=== PATIENT | female | born 1960 | race African-American/Black ===

== ENCOUNTER 2017-11-29 11:17 | Observation (INO) ==
[2017-11-29 13:45] LABS: Basophils % 0.5 % (0.0-0.8); Eosinophils # 0.3 10*3/uL (0.0-0.87); Eosinophils % 4.6 % (0.00-10.9); Hematocrit 45.2 VOL% (35.7-47.0); Hemoglobin 15.3 GM/DL (12.0-16.0); Immature Granulocytes % 0.2 %; Immature Granulocytes Absolute 0.01 #; Lymphocytes # 2.5 10*3/uL (1.4-4.0); Lymphocytes % 39.8 % (21.3-54.2); Mean Corpuscular HGB Conc 33.8 GM/DL (32-36); Mean Corpuscular Hemoglobin 29 PG (27-34); Mean Corpuscular Volume 86.9 FL (87-102); Mean Platelet Volume 9.9 FL (9.6-12.0); Monocytes # 0.7 10*3/uL (0.11-0.8); Monocytes % 11.5 % (1.7-12.7); Neutrophils # 2.7 10*3/uL (1.4-7.4); Neutrophils % 43.4 % (38.7-73.9); Platelet Count 300 T/CUMM (130-400); Red Cell Distribution Width 13.5 % (9.3-17.3); White Blood Count 6.3 T/CUMM (4-12)
[2017-11-29 13:55] LABS: INR 0.9
[2017-11-29] MEDS ORDERED: ALUM/MAG/SIMETH/LIDO VISC 1:1 30 ML BOTTLE PO STA (14:07)
[2017-11-29] MEDS ORDERED: NITROGLYCERIN 2% OINT 1 INCH/GM PACK TOP STA (14:07)
[2017-11-29] MEDS ORDERED: SODIUM CHLORIDE 0.9% 500 ML IV STA (14:07)
[2017-11-29] MEDS ORDERED: MORPHINE 2 MG/1 ML SYRINGE IV STA (14:07)
[2017-11-29] MEDS ORDERED: ONDANSETRON 4 MG/2 ML VIAL IV STA (14:07)
[2017-11-29] MEDS ORDERED: ASPIRIN 325 MG TABLET PO STA (14:07)
[2017-11-29] MEDS ORDERED: ALUM/MAG/SIMETH/LIDO VISC 1:1 30 ML BOTTLE PO ONE (14:12)
[2017-11-29] MEDS ORDERED: ASPIRIN 325 MG TABLET ONE (14:12)
[2017-11-29] MEDS ORDERED: NITROGLYCERIN 2% OINT 1 INCH/GM PACK TOP ONE (14:12)
[2017-11-29 14:18] LABS: Alanine Aminotransferase 57 U/L (13-56); Albumin 3.8 G/DL (3.4-5.0); Alkaline Phosphatase 115 U/L (45-117); Aspartate Amino Transferase 60 U/L (0-37); Blood Urea Nitrogen 17 MG/DL (7-18); Calcium 9.2 MG/DL (8.5-10.1); Glucose 92 MG/DL (74-106); Osmolality,Calculated 276.7 MOS/KG (273-304); Sodium 138 MMOL/L (136-145); Total Protein 8.5 G/DL (6.4-8.3); Troponin I Only < 0.015 NG/ML (0.00-0.045)
[2017-11-29] MEDS ORDERED: PANTOPRAZOLE 40 MG VIAL IV STA (14:28)
[2017-11-29 14:48] LABS: Apearance,Urine Slightly Hazy (Clear); Bacteria,Urine Occasional /HPF (Few); Bilirubin,Urine Negative (Negative); Blood, Urine Negative (Negative); Glucose,Urine (UA) Negative (Negative); Ketones,Urine 5 mg/dL (Negative); Mucus,Urine Occasional /LPF (Occasional); Nitrite,Urine Negative (Negative); Protein,Urine Negative; RBC,Urine 3 /HPF (0-4); Squamous Epithelial Cell,Urine Occasional /HPF (0-10); Urine Color Yellow (Yellow); Urine Specific Gravity 1.023 (1.001-1.035); WBC,Urine 6 /HPF (0-6)
[2017-11-29] MEDS ORDERED: cefTRIAXone 1,000 MG in SODIUM CHLORIDE 0.9% 100 ML IV STA (14:52)
[2017-11-29] MEDS ORDERED: PANTOPRAZOLE 40 MG VIAL IV ONE (15:04)
[2017-11-29] MEDS ORDERED: cefTRIAXone 1,000 MG VIAL ONE (15:04)
[2017-11-29 15:15] LABS: Barbiturates Screen,Urine Negative (Negative); Benzodiazepines Screen,Urine Negative (Negative); Cannabinoid Screen,Urine Negative (Negative); Opiate Screen,Urine Negative (Negative); Phencyclidine Screen,Urine Negative (Negative)
[2017-11-29] MEDS ORDERED: NICOTINE 21 MG/24 HR PATCH TRANSDERM PRN (16:48)
[2017-11-29] MEDS ORDERED: ONDANSETRON 4 MG/2 ML VIAL IV PRN (16:48)
[2017-11-29] MEDS ORDERED: ACETAMINOPHEN 325 MG TABLET PO PRN (16:48)
[2017-11-29] MEDS ORDERED: MORPHINE 2 MG/1 ML SYRINGE IV PRN (16:48)
[2017-11-29] MEDS ORDERED: ATORVASTATIN 20 MG TABLET PO SCH (21:00)
[2017-11-29] MEDS: CARVEDILOL 3.125 MG TABLET PO SCH (22:05)
[2017-11-29] MEDS: SODIUM CHLORIDE 0.9% 1,000 ML IV SCH (22:06)
[2017-11-30 05:17] LABS: Basophils % 0.6 % (0.0-0.8); Eosinophils # 0.2 10*3/uL (0.0-0.87); Eosinophils % 4.6 % (0.00-10.9); Hematocrit 38.4 VOL% (35.7-47.0); Hemoglobin 12.6 GM/DL (12.0-16.0); Immature Granulocytes % 0.2 %; Immature Granulocytes Absolute 0.01 #; Lymphocytes # 2.5 10*3/uL (1.4-4.0); Lymphocytes % 46.9 % (21.3-54.2); Mean Corpuscular HGB Conc 32.8 GM/DL (32-36); Mean Corpuscular Hemoglobin 29 PG (27-34); Mean Corpuscular Volume 88.3 FL (87-102); Mean Platelet Volume 10.1 FL (9.6-12.0); Monocytes # 0.8 10*3/uL (0.11-0.8); Monocytes % 15.2 % (1.7-12.7); Neutrophils # 1.7 10*3/uL (1.4-7.4); Neutrophils % 32.5 % (38.7-73.9); Platelet Count 234 T/CUMM (130-400); Red Blood Count 4.35 MC/CUMM (3.8-5.5); Red Cell Distribution Width 13.2 % (9.3-17.3); White Blood Count 5.3 T/CUMM (4-12)
[2017-11-30 05:54] LABS: Albumin 2.7 G/DL (3.4-5.0); Bilirubin,Total 1.3 MG/DL (0.2-1.0); Calcium 8.2 MG/DL (8.5-10.1); Osmolality,Calculated 279.4 MOS/KG (273-304); Potassium 4.2 MMOL/L (3.5-5.1); Risk Ratio 2.36; Total Protein 6.2 G/DL (6.4-8.3)
[2017-11-30 05:59] LABS: Band Neutrophils 2 % (0-10); Eosinophils 3 % (0-10); Lymphocytes 58 % (20-55); Segmented Neutrophils 31 % (50-85); Total Cells Counted 100
[2017-11-30 06:00] LABS: Platelet Estimate Normal
[2017-11-30] MEDS ORDERED: ASPIRIN EC 81 MG TABLET PO SCH (09:00)
[2017-11-30] MEDS ORDERED: PANTOPRAZOLE 40 MG TABLET PO SCH (09:00)
[2017-11-30] MEDS: CARVEDILOL 3.125 MG TABLET PO SCH (09:33)
[2017-11-30] MEDS: SODIUM CHLORIDE 0.9% 1,000 ML IV SCH (09:34)
[2017-11-30 17:13] VITALS: BP 132/82
== END 2017-11-30 17:45 | disposition home or self-care (01) ==
LOC: N.EDINP 11:17 → N.ED 11:17 → SUATTDRO 15:32 → N.TELEN 18:37
PROVIDERS: ATTEND Internal Medicine Nephrology